=== PATIENT | female | born 1975 | race Caucasian/White ===

== ENCOUNTER 2017-12-22 00:36 | Emergency (ER) | payer SELFPAY ==
[~2017-12-22] VITALS: Ht 154.9 cm; Wt 77.6 kg
[2017-12-22 00:40] VITALS: Ht 154.9 cm; Wt 77.6 kg
[2017-12-22 01:36] LABS: BASOPHIL % 0.3 % (0-2); PLATELET COUNT 372 x10^3mcL (130-400)
[2017-12-22 01:38] LABS: RED CELL DISTRIBUTION WIDTH 20.2 % (11.5-14.5)
[2017-12-22 01:48] LABS: CALCIUM 8.2 mg/dL (8.5-10.1); CARBON DIOXIDE 26.9 mmol/L (21-32); CREATININE SERUM 1.1 mg/dL (0.6-1.0); POTASSIUM SERUM 3.3 mmol/L (3.5-5.1)
[2017-12-22 01:52] LABS: BILIRUBIN TOTAL 0.22 mg/dL (0.20-1.00); TOTAL PROTEIN, SERUM 6.9 g/dL (6.4-8.2)
[2017-12-22 01:53] LABS: ALBUMIN 3.2 g/dL (3.4-5.0)
[2017-12-22 01:58] LABS: rbc morphology (normal/abnorm) ABNORMAL (NORMAL)
[2017-12-22 03:19] LABS: UA SPECIFIC GRAVITY 1.015 (1.005-1.035); microscopic required? YES; urine erythrocyte 3+ (NEGATIVE)
[2017-12-22 04:09] VITALS: BP 124/85
== END 2017-12-22 04:09 | disposition home or self-care (01) ==
LOC: ED 00:36
PROVIDERS: Emergency Medicine
DX: N39.0 Urinary tract infection, site not specified (principal); N23 Unspecified renal colic; N20.0 Calculus of kidney
CPT/HCPCS: 83880; J1885; J2765

== ENCOUNTER 2018-01-09 20:03 | Inpatient (IN) | payer MEDICAID ==
[~2018-01-09] VITALS: Ht 154.9 cm; Wt 73.5 kg
[2018-01-09 20:15] VITALS: Ht 154.9 cm; Wt 73.5 kg
[2018-01-09 22:07] LABS: UA SPECIFIC GRAVITY 1.025 (1.005-1.035); microscopic required? YES; urine erythrocyte 1+ (NEGATIVE)
[2018-01-09 22:47] LABS: BASOPHIL % 0.5 % (0-2); PLATELET COUNT 395 x10^3mcL (130-400); RED CELL DISTRIBUTION WIDTH 18.5 % (11.5-14.5)
[2018-01-09 22:56] LABS: CALCIUM 8.4 mg/dL (8.5-10.1); CARBON DIOXIDE 25.1 mmol/L (21-32); CREATININE SERUM 1.2 mg/dL (0.6-1.0); POTASSIUM SERUM 3.3 mmol/L (3.5-5.1)
[2018-01-09 23:00] LABS: ALBUMIN 3.6 g/dL (3.4-5.0); BILIRUBIN TOTAL 0.4 mg/dL (0.20-1.00); TOTAL PROTEIN, SERUM 7.7 g/dL (6.4-8.2)
[2018-01-10] VITALS (8 sets, daily range): BP systolic 117–132; BP diastolic 72–91
[2018-01-10] MEDS ORDERED: MELOXICAM (01:04)
[2018-01-10] MEDS ORDERED: NEU300 PO (01:05)
[2018-01-10 02:39] LABS: CHOLESTEROL/HDL RATIO 3.9; MAGNESIUM 1.9 mg/dL (1.8-2.4); PHOSPHOROUS 2.9 mg/dL (2.5-4.9)
[2018-01-10 02:44] LABS: FREE T4 0.87 ng/dL (0.76-1.46); FREE THYROXINE INDEX 2.1 ug/dL (1.4-4.5); T3 TOTAL 1.36 ng/mL; T4(THYROXINE) 6.7 ug/dL (4.7-13.3)
[2018-01-10 06:01] LABS: BASOPHIL % 0.2 % (0-2); PLATELET COUNT 331 x10^3mcL (130-400)
[2018-01-10 06:17] LABS: CARBON DIOXIDE 23.5 mmol/L (21-32); CREATININE SERUM 1.2 mg/dL (0.6-1.0); POTASSIUM SERUM 3.8 mmol/L (3.5-5.1)
[2018-01-10 06:21] LABS: RED CELL DISTRIBUTION WIDTH 18.7 % (11.5-14.5)
[2018-01-10 09:44] LABS: AMPHETAMINE QUAL UR NONE DETECTED (See below)
[2018-01-11 05:26] VITALS: BP 126/80
[2018-01-11 06:05] LABS: BASOPHIL % 0.1 % (0-2); PLATELET COUNT 368 x10^3mcL (130-400)
[2018-01-11 06:35] LABS: CALCIUM 8.6 mg/dL (8.5-10.1); CHLORIDE SERUM 108 mmol/L (98-107); GFR1 > 60 mL/min; GLUCOSE SERUM 139 mg/dL (74-106); MAGNESIUM 1.8 mg/dL (1.8-2.4); PHOSPHOROUS 2.8 mg/dL (2.5-4.9); POTASSIUM SERUM 4.3 mmol/L (3.5-5.1); SODIUM SERUM 141 mmol/L (136-145)
[2018-01-11 06:53] LABS: RED CELL DISTRIBUTION WIDTH 18.4 % (11.5-14.5)
[2018-01-11 09:51] VITALS: BP 130/86
[2018-01-11 14:02] VITALS: BP 128/88
[2018-01-11 17:34] VITALS: BP 133/84
[2018-01-11 21:09] VITALS: BP 140/83
[2018-01-12 00:10] VITALS: BP 140/95
[2018-01-12 05:52] VITALS: BP 143/84
[2018-01-12 06:39] LABS: BASOPHIL % 0.5 % (0-2); PLATELET COUNT 330 x10^3mcL (130-400)
[2018-01-12 07:03] LABS: CALCIUM 8.5 mg/dL (8.5-10.1); CARBON DIOXIDE 23.3 mmol/L (21-32); CHLORIDE SERUM 112 mmol/L (98-107); GFR1 > 60 mL/min; GLUCOSE SERUM 90 mg/dL (74-106); MAGNESIUM 1.7 mg/dL (1.8-2.4); PHOSPHOROUS 2.9 mg/dL (2.5-4.9); POTASSIUM SERUM 3.7 mmol/L (3.5-5.1); SODIUM SERUM 144 mmol/L (136-145)
[2018-01-12 07:38] LABS: RED CELL DISTRIBUTION WIDTH 18.5 % (11.5-14.5)
[2018-01-12 08:44] VITALS: BP 137/75
[2018-01-12 12:34] VITALS: BP 130/68
[2018-01-12] MEDS ORDERED: CIPRO500 MG PO (13:07)
[2018-01-12 13:12] VITALS: BP 130/68
[2018-01-12] MEDS ORDERED: ULTRAM50 MG PO (13:39)
[2018-01-12] MEDS ORDERED: FLO4 PO (14:00)
[2018-01-12 16:28] VITALS: BP 128/82
== END 2018-01-12 17:30 | disposition home or self-care (01) | DRG 465 ==
LOC: ED 20:03 → DU 01-10 00:36
PROVIDERS: Emergency Medicine; Family Medicine; Urology
PROC: 0T778DZ Dilation of Left Ureter with Intraluminal Device, Via Natural or Artificial Opening Endoscopic (ICD-10-PCS; principal; 2018-01-10 21:30)
DX: N13.2 Hydronephrosis with renal and ureteral calculous obstruction (principal); N17.0 Acute kidney failure with tubular necrosis; N39.0 Urinary tract infection, site not specified; E87.6 Hypokalemia; I10 Essential (primary) hypertension; M54.30 Sciatica, unspecified side; Z68.31 Body mass index [BMI] 31.0-31.9, adult
CPT/HCPCS: 83880; 84439; C1769; C2625; J0696; J1885; J2270; J2405; J2704; J3010; J3490; J7030; J7120; Q0092; Q9967

== ENCOUNTER 2018-01-24 19:03 | Emergency (ER) | payer MEDICAID ==
[~2018-01-24] VITALS: Ht 154.9 cm; Wt 71.7 kg
[~2018-01-24 19:03] MED LIST: CIPRO500 MG PO; FLO4 PO; MELOXICAM; NEU300 PO; ULTRAM50 MG PO
[2018-01-24 19:21] VITALS: BP 134/59; Ht 154.9 cm; Wt 71.7 kg
== END 2018-01-25 00:04 | disposition home or self-care (01) ==
LOC: ED 19:03
DX: Z46.6 Encounter for fitting and adjustment of urinary device (principal); N20.0 Calculus of kidney; I10 Essential (primary) hypertension

== ENCOUNTER 2020-09-06 12:12 | Emergency (ER) | payer MEDICAID ==
[~2020-09-06] VITALS: Ht 160 cm; Wt 74.8 kg
[2020-09-06 12:20] VITALS: Ht 160 cm; Wt 74.8 kg
[2020-09-06] MEDS ORDERED: NAPROXEN375 MG PO (13:36)
[2020-09-06] MEDS ORDERED: BACTRIM DS1 TAB PO (13:36)
[2020-09-06 13:45] VITALS: BP 118/91
[2020-09-06 14:06] LABS: UA SPECIFIC GRAVITY 1.015 (1.005-1.035); urine erythrocyte NEGATIVE (NEGATIVE)
[2020-09-06 14:28] LABS: microscopic required? YES
== END 2020-09-06 13:45 | disposition home or self-care (01) ==
LOC: ED 12:12
PROVIDERS: Emergency Medicine
DX: M54.2 Cervicalgia (principal); M54.9 Dorsalgia, unspecified; R30.0 Dysuria; R51.9 Headache, unspecified; R35.0 Frequency of micturition; J45.909 Unspecified asthma, uncomplicated; I10 Essential (primary) hypertension; Z98.890 Other specified postprocedural states; Z88.8 Allergy status to other drugs, medicaments and biological substances